=== PATIENT | female | born 1965 | race Caucasian/White ===

== ENCOUNTER 2017-05-03 08:46 | Inpatient (IN) | payer OTHER ==
[~2017-05-03] VITALS: Ht 165.1 cm; Wt 91.2 kg
[2017-05-03 09:27] LABS: BASOPHIL 0.2 % (0-2); EOSINOPHIL 3.9 % (0-5); HCT 38.8 % (37.0-47.0); HGB 12.6 g/dl (12.5-16.0); LYMPHOCYTE 13.3 % (15-48); MCH 26.5 pg (25.0-31.0); MCHC 32.5 g/dL (32.0-36.0); MCV 81.7 fL (78.0-100.0); MONOCYTE 4.1 % (0-12); MPV 9.9 fL (6.0-9.5); NEUTROPHIL 78.5 % (41-80); PLT 366 K/uL (150-400); RBC 4.75 M/uL (4.20-5.40); RDW 16.1 % (11.5-14.0); WBC 12.1 K/uL (4.0-10.5)
[2017-05-03 09:30] LABS: INR 1.05 (0.9-1.2); PROTHROMBIN TIME 12.8 SECONDS (11.4-13.2); PTT 28.4 SECONDS (24.3-32.1)
[2017-05-03 09:35] LABS: ALBUMIN 3.9 g/dL (3.5-5.0); BILIRUBIN - TOTAL 0.7 mg/dL (0.1-1.0); CREATININE 0.7 mg/dL (0.5-1.0); GLOBULIN (CALCULATION) 2.8 g/dL (2.2-4.2); POTASSIUM 3.8 mmol/L (3.5-5.1); TOTAL PROTEIN 6.7 g/dL (6.4-8.3)
[2017-05-03 09:53] LABS: LACTIC ACID 1.9 mmol/L (0.5-2.2)
[2017-05-03 10:41] LABS: BILIRUBIN NEGATIVE (NEGATIVE); BLOOD TRACE-INTACT Ery/uL (NEGATIVE); CLARITY CLEAR (CLEAR); COLOR YELLOW (YELLOW); GLUCOSE (U) NORMAL (NORMAL); KETONE (U) NEGATIVE (NEGATIVE); LEUKOCYTES 3+ Leu/uL (NEGATIVE); NITRITE NEGATIVE (NEGATIVE); PROTEIN NEGATIVE (NEGATIVE); UROBILINOGEN 0.2 mg/dL (0.2-1.0); pH 5.5 (5.0-9.0)
[2017-05-03 10:49] LABS: CKMB 3.01 ng/mL (0.97-4.94); TROPONIN T < 0.010 ng/mL
[2017-05-03 11:15] LABS: BACTERIA TRACE
[2017-05-04 07:13] LABS: BASOPHIL 0.2 % (0-2); EOSINOPHIL 4.8 % (0-5); HCT 38.7 % (37.0-47.0); HGB 12.5 g/dl (12.5-16.0); LYMPHOCYTE 13.4 % (15-48); MCH 26.7 pg (25.0-31.0); MCHC 32.3 g/dL (32.0-36.0); MCV 82.5 fL (78.0-100.0); MONOCYTE 4.8 % (0-12); MPV 9.9 fL (6.0-9.5); NEUTROPHIL 76.8 % (41-80); PLT 366 K/uL (150-400); RBC 4.69 M/uL (4.20-5.40); RDW 16.2 % (11.5-14.0); WBC 9.8 K/uL (4.0-10.5)
[2017-05-04 07:37] LABS: ALBUMIN 3.5 g/dL (3.5-5.0); BILIRUBIN - TOTAL 0.9 mg/dL (0.1-1.0); CREATININE 0.8 mg/dL (0.5-1.0); MAGNESIUM 1.86 mg/dL (1.40-2.10); POTASSIUM 3.4 mmol/L (3.5-5.1); TOTAL PROTEIN 6.5 g/dL (6.4-8.3)
[2017-05-04 12:51] LABS: COLOR (FLUID) YELLOW
[2017-05-04 13:03] LABS: CLARITY (FLUID) SLIGHTLY HAZY; RBC (FLUID) 4125 u/L; WBC (FLUID) 320 u/L
[2017-05-04 14:20] LABS: LYMPHOCYTES (FLUID) 29 %; MONOCYTES (FLUID) 51 %; NEUTROPHILS (FLUID) 20 %
[2017-05-05 05:55] LABS: BASOPHIL 0 % (0-2); EOSINOPHIL 0 % (0-5); HCT 38.4 % (37.0-47.0); HGB 12.7 g/dl (12.5-16.0); LYMPHOCYTE 4.9 % (15-48); MCH 26.9 pg (25.0-31.0); MCHC 33.1 g/dL (32.0-36.0); MCV 81.4 fL (78.0-100.0); MONOCYTE 0.8 % (0-12); MPV 10.2 fL (6.0-9.5); NEUTROPHIL 94.3 % (41-80); PLT 368 K/uL (150-400); RBC 4.72 M/uL (4.20-5.40); RDW 15.7 % (11.5-14.0)
[2017-05-05 05:59] LABS: WBC 11.1 K/uL (4.0-10.5)
[2017-05-05 06:20] LABS: ALBUMIN 3.1 g/dL (3.5-5.0); BILIRUBIN - TOTAL 0.6 mg/dL (0.1-1.0); CREATININE 0.8 mg/dL (0.5-1.0); GLOBULIN (CALCULATION) 3.2 g/dL (2.2-4.2); TOTAL PROTEIN 6.3 g/dL (6.4-8.3)
[2017-05-06 05:08] LABS: BASOPHIL 0 % (0-2); EOSINOPHIL 0.1 % (0-5); HCT 36.5 % (37.0-47.0); LYMPHOCYTE 6.1 % (15-48); MCH 26.9 pg (25.0-31.0); MCHC 32.9 g/dL (32.0-36.0); MCV 81.8 fL (78.0-100.0); MONOCYTE 5.1 % (0-12); MPV 9.4 fL (6.0-9.5); NEUTROPHIL 88.7 % (41-80); PLT 365 K/uL (150-400); RBC 4.46 M/uL (4.20-5.40); RDW 15.8 % (11.5-14.0); WBC 17.5 K/uL (4.0-10.5)
[2017-05-06 05:29] LABS: ALBUMIN 3.2 g/dL (3.5-5.0); BILIRUBIN - TOTAL 0.3 mg/dL (0.1-1.0); CREATININE 0.8 mg/dL (0.5-1.0); GLOBULIN (CALCULATION) 2.6 g/dL (2.2-4.2); POTASSIUM 3.4 mmol/L (3.5-5.1); TOTAL PROTEIN 5.8 g/dL (6.4-8.3)
[2017-05-07 05:51] LABS: BASOPHIL 0.1 % (0-2); EOSINOPHIL 0.8 % (0-5); HGB 12.3 g/dl (12.5-16.0); LYMPHOCYTE 23.2 % (15-48); MCH 26.9 pg (25.0-31.0); MCHC 32.4 g/dL (32.0-36.0); MCV 83.2 fL (78.0-100.0); MONOCYTE 6.7 % (0-12); MPV 9.8 fL (6.0-9.5); NEUTROPHIL 69.2 % (41-80); PLT 370 K/uL (150-400); RBC 4.57 M/uL (4.20-5.40); RDW 15.8 % (11.5-14.0); WBC 9.7 K/uL (4.0-10.5)
[2017-05-07 06:15] LABS: ALBUMIN 3.2 g/dL (3.5-5.0); BILIRUBIN - TOTAL 0.4 mg/dL (0.1-1.0); GLOBULIN (CALCULATION) 2.3 g/dL (2.2-4.2); POTASSIUM 4.1 mmol/L (3.5-5.1); TOTAL PROTEIN 5.5 g/dL (6.4-8.3)
[2017-05-07] MEDS ORDERED: PREDNISONE 10MG10 MG PO (14:00)
[2017-05-07] MEDS ORDERED: DUONEB 2.5-0.5M1 AMP NEB (14:01)
[2017-05-07] MEDS ORDERED: CEFDINIR300 MG PO (14:01)
[2017-05-07] MEDS ORDERED: BREO ELLIPTA 11 EACH INH (14:01)
[2017-05-07] MEDS ORDERED: ATARAX25 MG PO (14:01)
[2017-05-07] MEDS ORDERED: VENTOLIN HFA IN18 GM INH (14:02)
[2017-05-07] MEDS ORDERED: PRINIVIL10 MG PO (14:02)
== END 2017-05-07 14:26 | disposition home or self-care (01) | DRG 166 ==
LOC: FER 08:46 → FTCU 10:55 → FMS 05-06 11:33
PROVIDERS: Emergency Medicine; ADMIT Internal Medicine
PROC: 0B9K3ZZ Drainage of Right Lung, Percutaneous Approach (ICD-10-PCS; principal; 2017-05-04)
DX: J44.0 Chronic obstructive pulmonary disease with (acute) lower respiratory infection (principal); J18.9 Pneumonia, unspecified organism; J90 Pleural effusion, not elsewhere classified; J44.1 Chronic obstructive pulmonary disease with (acute) exacerbation; I10 Essential (primary) hypertension; F17.210 Nicotine dependence, cigarettes, uncomplicated; E78.5 Hyperlipidemia, unspecified
CPT/HCPCS: 36415; 36600; 71010; 71250; 80053; 80061; 80202; 81001; 82550; 82553; 82803; 82945; 83605; 83615; 83735; 83880; 83986; 84100; 84132; 84157; 84484; 85025; 85610; 85730; 87040; 87070; 87102; 87116; 87205; 89051; 93005; 94010; 94640; J1940; J2543; J2930; J3370